=== PATIENT | female | born 1955 | race Caucasian/White ===

== ENCOUNTER → 2023-12-14 13:28 | Outpatient (CLI) | payer OTHER, SELFPAY ==
--- NOTE | 2023-12-14 13:35 | DI.RAD.S_ITS ---
PROCEDURE: XR LUMBAR SPINE MIN 4V INDICATIONS: BACK PAIN TECHNIQUE: 5 views of the lumbar spine were acquired, including bilateral oblique views. COMPARISON: None. FINDINGS: Bones: Trace anterolisthesis of L4 on L5 likely degenerative. Vertebral body heights are well maintained. No traumatic subluxation. Overall dzok-ag-ahjzatql degenerative changes. Soft tissues: No suspicious calcifications. Partially seen mild bilateral hip arthrosis. Oblique images: Limited by overlapping bowel gas without definite pars defects. IMPRESSION: Ctgi-es-secyvxbe degenerative changes. If there is high concern for further derangement, consider MRI evaluation. Dictated by: Maulik Menon M.D. on 12/14/2023 at 14:22 Approved by: Maulik Menon M.D. on 12/14/2023 at 14:23
== END ==
PROVIDERS: PCP Internal Medicine; Referring Provider Physical Medicine & Rehabilitation; Visit Provider Physical Medicine & Rehabilitation
DX: M47.816 Spondylosis without myelopathy or radiculopathy, lumbar region (principal); M54.9 Dorsalgia, unspecified
CPT/HCPCS: 72110

== ENCOUNTER → 2024-03-29 12:11 | Outpatient (CLI) | payer OTHER, MEDICAID, SELFPAY ==
--- NOTE | 2024-03-29 12:14 | DI.MRI.S_ITS ---
PROCEDURE: MR LUMBAR SPINE WO CON INDICATIONS: RIGHT L4/5 RADICULOPATHY TECHNIQUE: Noncontrast sagittal T1 spin echo and T2 fast echo, sagittal STIR, and T2 fast spin echo through the lumbar spine. In cases with scoliosis, additional coronal T2 fast spin echo may be performed. COMPARISON: [facility], CR, XR LUMBAR SPINE MIN 4V, 12/14/2023, 13:34. FINDINGS: Image quality: Excellent. Alignment and Curvature: Mild levocurvature of the lumbar spine. Mild anterolisthesis of L3 on L4 and L4 on L5. Bone Marrow: Marrow is of normal overall signal. No acute vertebral body compression fractures. Spinal Cord: Conus medullaris terminates at the L1-L2 level. Visualized cord demonstrates normal signal and size. Paraspinous Soft Tissues: No paravertebral masses. Partially visualized cystic structure in the right pelvis measuring 2.3 cm. T12-L1: Normal appearance. L1-L2: Disc desiccation and minimal disc bulge. Facet arthropathy. No significant central canal or neural foraminal stenosis. L2-L3: Disc desiccation and mild diffuse disc bulge. Facet arthropathy and thickening of the ligamentum flavum. Mild central canal stenosis. Mild bilateral neural foraminal stenosis. L3-L4: Disc desiccation and diffuse disc bulge. Facet arthropathy and thickening of ligamentum flavum. Moderate central canal stenosis. Moderate left and mild right neural foraminal stenosis. L4-L5: Disc desiccation. Mild disc bulge. Facet arthropathy and thickening of ligamentum flavum. Moderate central canal stenosis. Moderate bilateral neural foraminal stenosis. L5-S1: Facet arthropathy. No central canal stenosis. Moderate right and mild left neural foraminal stenosis. IMPRESSION: 1. Multilevel degenerative changes of the lumbar spine as described above. 2. Moderate central canal stenosis at L3-L4 and L4-5. 3. Moderate neural foraminal stenosis on the left at L3-L4, bilaterally at L4-5 and right at L5-S1. 4. Partially visualized cystic structure in the right pelvis measuring 2.3 cm, may be ovarian in etiology. Given age, recommend pelvic ultrasound for further evaluation. Dictated by: Jaret Kathleen M.D. on 03/30/2024 at 15:09 Approved by: Jaret Kathleen M.D. on 03/30/2024 at 15:13
== END ==
PROVIDERS: PCP Nurse Practitioner Family; Referring Provider Physical Medicine & Rehabilitation; Visit Provider Physical Medicine & Rehabilitation
DX: M43.16 Spondylolisthesis, lumbar region (principal); M51.16 Intervertebral disc disorders with radiculopathy, lumbar region; M48.061 Spinal stenosis, lumbar region without neurogenic claudication; M48.07 Spinal stenosis, lumbosacral region; M47.26 Other spondylosis with radiculopathy, lumbar region; M47.27 Other spondylosis with radiculopathy, lumbosacral region; R93.89 Abnormal findings on diagnostic imaging of other specified body structures
CPT/HCPCS: 72148

== ENCOUNTER 2024-05-03 12:54 | Outpatient (CLI) | payer OTHER, MEDICAID, SELFPAY ==
[2024-05-03] VITALS (9 sets, daily range): BP systolic 141–164; BP diastolic 58–80; PULSE 87–92; RESP 15–21; TEMP 36.8; O2SAT 95–100
--- NOTE | 2024-05-03 13:45 | DI.RAD.S_ITS ---
PROCEDURE: PAIN L/S FACET INJ/BLK 1ST FATEMEH INDICATIONS: Bilateral L3, L4 and L5 medial branch block LA COMPARISON: None. FINDINGS: Fluoroscopic spot filming was performed to verify placement of spinal needles at the bilateral L3, L4, and L5 level(s), as labeled on the films. Appropriate location(s) of the needle tip(s) was confirmed by injection of iodinated contrast. IMPRESSION: Fluoroscopy for medial branch blocks. Dictated by: Silvana Basurto M.D. on 05/04/2024 at 13:09 Approved by: Silvana Basurto M.D. on 05/04/2024 at 13:09
[2024-05-03] MEDS: MIDAZOLAM 2 MG/2 ML VIAL IV (14:19)
[2024-05-03] MEDS: BUPIVACAINE 0.5% (PF) 10 ML VIAL 5 ML INJ (14:22)
[2024-05-03] MEDS: LIDOCAINE 1% 20 ML 5 ML INJ (14:23)
[2024-05-03] MEDS: iopamidoL 15 ML VIAL 3 ML INJ (14:23)
--- NOTE | 2024-05-03 14:43 | P.PCN_ITS ---
Date/Time/Diagnoses Date of procedure: 05/03/24 Time of procedure: 14:43 Pre-procedure diagnosis: FACET ARTHROPATHY Post-procedure diagnosis: same Procedure Notes Procedure: 1. BILATERAL L3, L4 AND L5 DIAGNOSTIC MB BLOCKS Indications: Irma is referred by BECKY Clemons for treatment of Bilateral Axial LBP. Physician: Alexx Rubin Total Fluoroscopy time (seconds): 10 Total sedation minutes: 16 Complications: none Procedure in detail & Post-procedure care: DESCRIPTION OF PROCEDURE Fluoroscopically guided, contrast-controlled bilateral L3, L4 AND L5 medial branch blocks with 0.5cc of 0.5% Marcaine. Following review of allergy and review of potential side effects and complications, including, but not necessarily limited to, infection, allergic reaction, local tissue breakdown, nerve injury, paralysis, stroke and possible , the patient indicated that the patient understood and agreed to proceed. An informed consent document was signed by the patient, witnessed by a nurse, and placed in the patient's chart. After review of previous anaesthesic history and IV conscious sedation the patient was deemed safe to proceed with today's procedure with IV conscious sedation as ASA class II designation. Safety time-out was performed to confirm patient ID, procedure to be performed and site of procedure. IV sedation was accomplished with a combination of 2mg of Versed was administered by the RN after DO order, titrated to patient comfort during the course of the procedure while the patient remained responsive to all verbal commands In the prone position, following sterile prep and drape of the lumbar region, the right L3, L4 AND L5 anatomical location of the medial branch of the dorsal ramus was identified fluoroscopically. Subsequently an anesthetic skin wheal using 1% lidocaine solution was initiated at each of the anatomical spots. Subsequently then a 22-gauge 3.5-inch spinal needle was atraumatically introduced and advanced under fluoroscopic guidance at each of the corresponding sites at the right L3, L4 and L5 MB. After negative aspiration, 0.2cc of Isovue 200 was injected, confirming placement without vascular or intrathecal uptake. Subsequently then 0.5cc of 0.5% Marcaine solution was injected at each of the corresponding sites at the right L3, L4 and L5 medial branch locations. The identical procedure was replicated on the left. The patient tolerated the proced ure well without signs or symptoms of complications. The patient tolerated the procedure well without signs or symptoms of complications prior to transfer to the recovery area continued monitoring without incident. Post-procedure, the patient was monitored initiating provocative activities to measure the amount of relief from block of the facetogenic pain. The patient reported a VAS of 7 prior to the procedure and a post-procedure VAS of 1. It has been a pleasure to assist in the diagnostic and therapeutic care of your patient. POST OP INSTRUCTIONS The patient was provided with a Pain Log to complete over the next several hours and subsequent days prior to the patient's follow up with the ordering physician. If the patient has naturopathic physician relief to the solution applied, then they may be a candidate for medial branch rhizotomy. The patient is aware, was provided, once again, with a Pain Log and will follow up with the referring physician for review and clinical correlation
== END 2024-05-03 14:54 | disposition home or self-care (01) ==
PROVIDERS: PCP Nurse Practitioner Family; Referring Provider Physical Medicine & Rehabilitation; Visit Provider Physical Medicine & Rehabilitation
DX: M47.816 Spondylosis without myelopathy or radiculopathy, lumbar region (principal)
CPT/HCPCS: 64493; 64494; 99152; J2250

== ENCOUNTER 2024-07-31 09:23 | Outpatient (CLI) | payer MEDICARE, MEDICAID, SELFPAY ==
[2024-07-31] VITALS (9 sets, daily range): BP systolic 130–156; BP diastolic 56–77; PULSE 73–85; RESP 16–24; TEMP 36.6; O2SAT 97–100
--- NOTE | 2024-07-31 09:25 | DI.RAD.S_ITS ---
PROCEDURE: PAIN L/S FACET INJ/BLK 1ST FATEMEH INDICATIONS: Bilat L3-L4 and L5 medial branch block SA COMPARISON: [facility], XA, PAIN L/S FACET INJ/BLK 1ST FATEMEH, 05/03/2024, 14:22. FINDINGS/IMPRESSION: Fluoroscopic spot filming was performed to verify placement of spinal needles at the L3 through L5 level(s), as labeled on the films. Appropriate location(s) of the needle tip(s) was confirmed by injection of iodinated contrast. Dictated by: Rosalind Potter M.D. on 08/01/2024 at 22:44 Approved by: Rosalind Potter M.D. on 08/01/2024 at 22:44
[2024-07-31] MEDS: MIDAZOLAM 2 MG/2 ML VIAL IV (10:50)
[2024-07-31] MEDS: LIDOCAINE 1% 20 ML 5 ML INJ (10:59)
[2024-07-31] MEDS: iopamidoL 15 ML VIAL 3 ML INJ (11:01)
[2024-07-31] MEDS: LIDOCAINE 2% INJ SDV 5ML 1 ML INJ (11:01)
--- NOTE | 2024-07-31 11:13 | PM.PROC.IR.1 ---
Date/Time/Diagnoses Date of procedure: 07/31/24 Time of procedure: 11:13 Pre-procedure diagnosis: 1. FACET ARTHROPATHY Post-procedure diagnosis: same Procedure Notes Procedure: 1. BILATERAL L3, L4 AND L5 DIAGNOSTIC MB BLOCKS Indications: Irma is referred by BECKY Clemons for treatment of Bilateral Axial LBP. Physician: Alexx Rubin Total Fluoroscopy time (seconds): 12 Total sedation minutes: 16 Complications: none Procedure in detail & Post-procedure care: DESCRIPTION OF PROCEDURE Fluoroscopically guided, contrast-controlled bilateral L3, L4 AND L5 medial branch blocks with 0.5cc of 2% Lidocaine. Following review of allergy and review of potential side effects and complications, including, but not necessarily limited to, infection, allergic reaction, local tissue breakdown, nerve injury, paralysis, stroke and possible , the patient indicated that the patient understood and agreed to proceed. An informed consent document was signed by the patient, witnessed by a nurse, and placed in the patient's chart. After review of previous anaesthesic history and IV conscious sedation the patient was deemed safe to proceed with today's procedure with IV conscious sedation as ASA class II designation. Safety time-out was performed to confirm patient ID, procedure to be performed and site of procedure. IV sedation was accomplished with a combination of 2mg of Versed was administered by the RN after DO order, titrated to patient comfort during the course of the procedure while the patient remained responsive to all verbal commands In the prone position, following sterile prep and drape of the lumbar region, the right L3, L4 AND L5 anatomical location of the medial branch of the dorsal ramus was identified fluoroscopically. Subsequently an anesthetic skin wheal using 1% lidocaine solution was initiated at each of the anatomical spots. Subsequently then a 22-gauge 3.5-inch spinal needle was atraumatically introduced and advanced under fluoroscopic guidance at each of the corresponding sites at the right L3, L4 and L5 MB. After negative aspiration, 0.2cc of Isovue 200 was injected, confirming placement without vascular or intrathecal uptake. Subsequently then 0.5cc of 2% Lidocaine solution was injected at each of the corresponding sites at the right L3, L4 and L5 medial branch locations. The identical procedure was replicated on the left. The patient tolerated the procedure well without signs or symptoms of complications. The patient tolerated the procedure well without signs or symptoms of complications prior to transfer to the recovery area continued monitoring without incident. Post-procedure, the patient was monitored initiating provocative activities to measure the amount of relief from block of the facetogenic pain. The patient reported a VAS of 7 prior to the procedure and a post-procedure VAS of 1. It has been a pleasure to assist in the diagnostic and therapeutic care of your patient. POST OP INSTRUCTIONS The patient was provided with a Pain Log to complete over the next several hours and subsequent days prior to the patient's follow up with the ordering physician. If the patient has traffic analyst relief to the solution applied, then they may be a candidate for medial branch rhizotomy. The patient is aware, was provided, once again, with a Pain Log and will follow up with the referring physician for review and clinical correlation
== END 2024-07-31 11:25 | disposition home or self-care (01) ==
PROVIDERS: PCP Nurse Practitioner Family; Referring Provider Physical Medicine & Rehabilitation; Visit Provider Physical Medicine & Rehabilitation
DX: M47.816 Spondylosis without myelopathy or radiculopathy, lumbar region (principal)
CPT/HCPCS: 64493; 64494; 99152; J2250

== ENCOUNTER 2024-09-13 10:20 | Outpatient (CLI) | payer MEDICARE, MEDICAID, SELFPAY ==
[2024-09-13] VITALS (13 sets, daily range): BP systolic 115–154; BP diastolic 52–94; PULSE 84–91; RESP 14–21; TEMP 36.3; O2SAT 94–99
--- NOTE | 2024-09-13 10:21 | DI.RAD.S_ITS ---
PROCEDURE: PAIN L/S MED/LAT N RFA BILAT INDICATIONS: Bilateral 3 L4 and L5 medial branch RFA COMPARISON: None. FINDINGS/IMPRESSION: Fluoroscopic spot filming was performed to verify placement of spinal needles at the L3, L4, and L5 levels bilaterally levels, as labeled on the films. Appropriate locations of the needle tips were confirmed by injection of iodinated contrast. Approved by: Gregg Robert M.D. on 09/13/2024 at 19:21
[2024-09-13] MEDS: MIDAZOLAM 5 MG/5 ML VIAL 2 MG IV ×2 (11:35→11:54)
[2024-09-13] MEDS: BUPIVACAINE 0.5% (PF) 10 ML VIAL 5 ML INJ (11:39)
[2024-09-13] MEDS: LIDOCAINE 1% 20 ML 5 ML INJ (11:39)
--- NOTE | 2024-09-13 12:21 | P.PCN_ITS ---
Date/Time/Diagnoses Date of procedure: 09/13/24 Time of procedure: 12:21 Pre-procedure diagnosis: 1. RECALCITRANT FACET ARTHROPATHY Post-procedure diagnosis: same Procedure Notes Procedure: 1. BILATERAL L3, L4 AND L5 MEDIAL BRANCH RADIOFREQUENCY NEUROTOMY Indications: Irma is referred by BECKY Clemons for treatment of facet arthropathy. Physician: Alexx Rubin Total Fluoroscopy time (seconds): 22 Total sedation minutes: 39 Complications: none Procedure in detail & Post-procedure care: DESCRIPTION OF PROCEDURE Bilateral L3, L4 and L5 medial branch radiofrequency neurotomy The patient is well known to this clinic having undergone previous facet injections with good but temporary relief. The patient has experienced appropriate, concordant relief with previous facet and median branch blocks but the patient's pain has been recalcitrant to further conservative measures. Therefore, based upon the patient's relief and persistent symptoms, the patient is considered an appropriate candidate for facet rhizotomy. All of the patient's questions regarding the risks versus benefits of the procedure, including, but not limited to, bleeding, infection, temporary as well as lasting nerve injury, paralysis, stroke, and , as well treatment alternatives were answered to satisfaction. After obtaining informed consent, denial of pertinent drug allergies, as well as being made aware of the potential risks of bleeding, infection, spinal cord trauma, paralysis, temporary and permanent nerve damage, seizure, stroke, and possible , the patient was brought to the fluoroscopy suite and positioned prone on the fluoroscopy table. After review of previous anaesthesic history and IV conscious sedation the patient was deemed safe to proceed with today's procedure with IV conscious sedation as ASA class II designation. Safety time-out was performed to confirm patient ID, procedure to be performed and site of procedure. IV sedation was accomplished with a combination of 4mg of Versed administered by the RN after DO order, titrated to patient comfort during the course of the procedure while the patient remained responsive to all verbal commands. The lumbar region was prepped in usual sterile fashion and covered with a fenestrated drape in the usual sterile fashion. Appropriate monitors applied including pulse oximeter, pulse, and blood pressure for regular monitoring throughout the procedure. After local infiltration using 1% lidocaine, under fluoroscopic guidance, a 10- cm RF insulated needle with a 10-mm active tip was positioned parallel to the junction of the right the superior articulating process where the L5 medial branch resides. Needle placement was confirmed with motor stimulation of .5v on the right which produced local stimulation without radicular component. The stimulation was then increased to 2v with, once again, only local multifidus stimulation without radicular component. The needle was then removed and the identical procedure was performed along the length of the right L4 medial branch with motor stimulation at .7v on the right. The identical procedure was once again performed along the length of the right L3 and medial branch with motor s timulation of .5v on the right. The medial branches were then anesthetised with 0.5% marcaine. This was then followed by two discreet lesions performed at 80 degrees Celsius for 90 seconds each. The identical procedures were repeated on the left. The patient tolerated the procedure well without signs or symptoms of complications prior to transfer to the recovery area continued monitoring without incident. The patient was then transferred to the recovery area where they were observed for an appropriate period of time after the injection. The patient reported a VAS score of 9 prior to the procedure and a post-procedure VAS of 0. POST OP INSTRUCTIONS The patient was provided a Pain Log to continue to record the patient's response to the target-specific procedure prior to the patient's follow-up visit with the referring physician. Additionally, specific post-injection care instructions and a contact number to our office were provided if concerns arise regarding possible complications associated with the procedure are suspected.
== END 2024-09-13 12:33 | disposition home or self-care (01) ==
LOC: RAD 10:20
PROVIDERS: PCP Nurse Practitioner Family; Referring Provider Physical Medicine & Rehabilitation; Visit Provider Physical Medicine & Rehabilitation
DX: M47.816 Spondylosis without myelopathy or radiculopathy, lumbar region (principal)
CPT/HCPCS: 64635; 64636; 99152; 99153; J2250

== ENCOUNTER → 2024-11-21 15:55 | Outpatient (CLI) | payer MEDICARE, MEDICAID, SELFPAY ==
[2024-11-21 16:52] LABS: Add Manual Diff / Slide Review NO; Basophils Absolute Auto 0 /uL (0-100); Basophils Percent Auto 0.6 % (0-2); Eosinophils Absolute Auto 200 /uL (0-450); Eosinophils Percent Auto 2.7 % (2-4); Hematocrit 37.9 % (36-46); Hemoglobin 12.8 g/dL (12.0-16.0); Lymphocytes Absolute Auto 2700 /uL (1100-4500); Lymphocytes Percent Auto 32.6 % (25-40); Mean Corpuscular HGB Conc 33.8 % (30-36); Mean Corpuscular Hemoglobin 29.8 PG (26-34); Mean Corpuscular Volume 88.2 fL (80-100); Monocytes Absolute Auto 900 /uL (0-900); Monocytes Percent Auto 10.3 % (3-14); Neutrophils Absolute Auto 4500 /uL (1500-7000); Neutrophils Percent Auto 53.8 % (50-75); Platelet Count 338 X10^3/uL (150-400); Red Blood Cell Count 4.29 X10^6/uL (4.0-5.2); Red Cell Distribution Width 12.9 % (11.6-14.8); White Blood Cell Count 8.4 X10^3/uL (4.5-11.0)
[2024-11-21 17:13] LABS: C-Reactive Protein Quant 4.7 mg/dL (<1.0)
[2024-11-21 17:16] LABS: Rheumatoid Factor 10.7 IU/mL (<12.0)
[2024-11-21 18:05] LABS: Vitamin B12 527 pg/mL (239-931)
[2024-11-21 18:10] LABS: Free T4, Direct Thyroxine 1.06 ng/dL (0.78-2.19)
[2024-11-21 18:22] LABS: Erythrocyte Sedimentation Rate 48 MM/HR (0-20)
== END ==
PROVIDERS: Referring Provider Physical Medicine & Rehabilitation; Visit Provider Physical Medicine & Rehabilitation
DX: M47.816 Spondylosis without myelopathy or radiculopathy, lumbar region (principal); M43.16 Spondylolisthesis, lumbar region; M75.41 Impingement syndrome of right shoulder; M53.3 Sacrococcygeal disorders, not elsewhere classified; M70.61 Trochanteric bursitis, right hip
CPT/HCPCS: 36415; 82306; 82607; 84439; 84443; 85025; 85651; 86140; 86430; 99214